=== PATIENT | female | born 1935 | race Caucasian/White ===

== ENCOUNTER 2018-08-03 05:56 | Emergency (ER) | payer MEDICARE, MEDICAID ==
[~2018-08-03] VITALS: Ht 162.6 cm; Wt 64.0 kg
[2018-08-03] MEDS ORDERED: OLANZAPINE 10 MG/VIAL IM ONE (06:30)
[2018-08-03] MEDS ORDERED: MIDAZOLAM HCL 2 MG/2 ML VIAL IV ONE (06:30)
[2018-08-03 07:29] LABS: BASOPHILS % 0.9 % (0.0-2.0); EOSINOPHILS % 3.2 % (0.0-5.0); HEMATOCRIT. 41.2 % (36.0-48.0); HEMOGLOBIN. 13.7 g/dL (12.0-16.0); LYMPHOCYTES % 23.1 % (20.0-50.0); MEAN CORPUSCULAR HEMOGLOBIN 31.7 pg (28.0-32.0); MEAN CORPUSCULAR VOLUME 95.2 fL (81.0-99.0); MONOCYTES % 8.5 % (2.0-8.0); NEUTROPHILS % 64.3 % (40.0-76.0); PLATELET 178 x1000/uL (130-400); RED BLOOD CELL COUNT 4.33 mill/uL (4.2-5.4); RED CELL DISTRIBUTION WIDTH 12.9 % (11.6-14.6)
[2018-08-03 07:30] LABS: CHLORIDE 105 mEq/L (98-107)
[2018-08-03 07:36] LABS: ETHANOL BLOOD < 10 mg/dL
[2018-08-03 09:49] LABS: CLARITY URINE CLOUDY (CLEAR); COLOR URINE YELLOW (YELLOW); KETONES URINE NEGATIVE (NEGATIVE); LEUKOCYTE ESTERASE URINE 3+ (NEGATIVE); NITRITE URINE POSITIVE (NEGATIVE); OCCULT BLOOD URINE TRACE (NEGATIVE); PH URINE 6.5 (4.5-8.0); PROTEIN URINE NEGATIVE (NEGATIVE); SPECIFIC GRAVITY URINE 1.007 (1.005-1.030); UROBILINOGEN URINE 0.2 E.U./dL (0.2-1.0)
[2018-08-03 10:02] LABS: *AMPHETAMINES SCREEN URINE NEGATIVE (NEGATIVE); *BARBITURATES SCREEN URINE NEGATIVE (NEGATIVE)
[2018-08-03 10:03] LABS: *BENZODIAZEPINES SCREEN URINE PRESUMTIVE POSITIVE (NEGATIVE); *COCAINE SCREEN URINE NEGATIVE (NEGATIVE); METHADONE URINE SCREEN NEGATIVE (NEGATIVE); OPIATES URINE SCREEN NEGATIVE (NEGATIVE)
[2018-08-03 10:04] LABS: PHENCYCLIDINE URINE SCREEN NEGATIVE (NEGATIVE)
[2018-08-03 10:05] LABS: CANNABINOID URINE SCREEN NEGATIVE (NEGATIVE)
[2018-08-03 11:13] VITALS: BP 136/67
== END 2018-08-03 11:44 ==
LOC: ER 05:56
DX: M79.18 Myalgia, other site (principal); F03.90 Unspecified dementia, unspecified severity, without behavioral disturbance, psychotic disturbance, mood disturbance, and anxiety; E11.9 Type 2 diabetes mellitus without complications; I10 Essential (primary) hypertension; E78.00 Pure hypercholesterolemia, unspecified; W06.XXXA Fall from bed, initial encounter; Y93.89 Activity, other specified; Y92.128 Other place in nursing home as the place of occurrence of the external cause; Z90.49 Acquired absence of other specified parts of digestive tract
CPT/HCPCS: 36415; 70450; 71250; 72125; 74176; 80053; 80305; 80307; 80329; 81003; 85025; 87077; 87086; 87186; 96372; 96374; 99284; G0482; J2250; J3490

== ENCOUNTER 2018-10-29 19:27 | Inpatient (IN) | payer MEDICARE, MEDICAID ==
[~2018-10-29] VITALS: Ht 154.9 cm; Wt 71.2 kg
[2018-10-29] MEDS ORDERED: ONDANSETRON HCL 4MG/2ML INJ IV STA (19:55)
[2018-10-29] MEDS ORDERED: SODIUM CHLORIDE 0.9% 1,000 ML IV ONE (19:55)
[2018-10-29] MEDS ORDERED: HALOPERIDOL LACTATE 5MG/ML VIAL IM ONE (20:45)
[2018-10-29 20:47] LABS: BASOPHILS % 0.5 % (0.0-2.0); EOSINOPHILS % 1.9 % (0.0-5.0); HEMATOCRIT. 37.2 % (36.0-48.0); HEMOGLOBIN. 12.8 g/dL (12.0-16.0); LYMPHOCYTES % 18.5 % (20.0-50.0); MEAN CORPUSCULAR HEMOGLOBIN 32.1 pg (28.0-32.0); MEAN CORPUSCULAR VOLUME 93.2 fL (81.0-99.0); MEAN PLATELET VOLUME 7.4 fl (7.4-10.4); MONOCYTES % 10.1 % (2.0-8.0); PLATELET 146 x1000/uL (130-400); RED BLOOD CELL COUNT 3.99 mill/uL (4.2-5.4); RED CELL DISTRIBUTION WIDTH 12.6 % (11.6-14.6)
[2018-10-29 20:52] LABS: PROTHROMBIN TIME 10.7 sec (9.6-11.0)
[2018-10-29 20:53] LABS: CHLORIDE 105 mEq/L (98-107)
[2018-10-29 23:35] LABS: CLARITY URINE CLOUDY (CLEAR); COLOR URINE YELLOW (YELLOW); KETONES URINE TRACE (NEGATIVE); LEUKOCYTE ESTERASE URINE 3+ (NEGATIVE); NITRITE URINE NEGATIVE (NEGATIVE); OCCULT BLOOD URINE 1+ (NEGATIVE); PH URINE 5.5 (4.5-8.0); PROTEIN URINE NEGATIVE (NEGATIVE); SPECIFIC GRAVITY URINE 1.016 (1.005-1.030)
[2018-10-30] VITALS: BP 178/77
[2018-10-30 00:30] VITALS: BP 155/58
[2018-10-30] MEDS ORDERED: DOCU100T PO (01:32)
[2018-10-30] MEDS ORDERED: METF-414 PO (01:32)
[2018-10-30] MEDS ORDERED: DONE10TA11 PO (01:32)
[2018-10-30] MEDS ORDERED: LOSA50TA20 PO (01:32)
[2018-10-30] MEDS ORDERED: SIMV10TA6 PO (01:32)
[2018-10-30] MEDS ORDERED: GLIM2TAB2 PO (01:32)
[2018-10-30 04:00] VITALS: BP 133/44
[2018-10-30] MEDS ORDERED: DEXTROSE 50% WATER 50ML SYRINGE IV PRN (05:00)
[2018-10-30] MEDS: BLOOD SUGAR DIAGNOSTIC STRIP TEST SCH ×4 (07:26→21:07)
[2018-10-30] MEDS: INSULIN LISPRO 100 UNITS/ML SUBCUT SCH ×4 (07:26→21:22)
[2018-10-30 08:00] VITALS: BP 132/43
[2018-10-30] MEDS: ENOXAPARIN 40MG/0.4ML SYR SUBCUT SCH (08:53)
[2018-10-30 12:00] VITALS: BP 119/49
[2018-10-30 13:53] LABS: CREATINE KINASE MB FRACTION 2.7 ng/mL (0.5-3.6)
[2018-10-30] MEDS: CEFTRIAXONE 1 G PREMIX 50 ML IV SCH (14:53)
[2018-10-30] MEDS: SODIUM CHLORIDE 0.9% 1,000 ML IV SCH (14:54)
[2018-10-30 20:00] VITALS: BP 156/58
[2018-10-30] MEDS: HALOPERIDOL LACTATE 5MG/ML VIAL IM PRN (21:22)
[2018-10-31] VITALS: BP 136/60
[2018-10-31] MEDS: HALOPERIDOL LACTATE 5MG/ML VIAL IM PRN ×2 (02:08→23:06)
[2018-10-31 04:00] VITALS: BP 138/52
[2018-10-31] MEDS: SODIUM CHLORIDE 0.9% 1,000 ML IV SCH (06:24)
[2018-10-31] MEDS: BLOOD SUGAR DIAGNOSTIC STRIP TEST SCH ×4 (06:24→21:00)
[2018-10-31 06:45] LABS: BASOPHILS % 0.5 % (0.0-2.0); EOSINOPHILS % 4.4 % (0.0-5.0); HEMATOCRIT. 33.2 % (36.0-48.0); HEMOGLOBIN. 11.5 g/dL (12.0-16.0); LYMPHOCYTES % 26.8 % (20.0-50.0); MEAN CORPUSCULAR HEMOGLOBIN 32.3 pg (28.0-32.0); MEAN CORPUSCULAR VOLUME 93.2 fL (81.0-99.0); MONOCYTES % 7.4 % (2.0-8.0); NEUTROPHILS % 60.9 % (40.0-76.0); PLATELET 142 x1000/uL (130-400); RED BLOOD CELL COUNT 3.57 mill/uL (4.2-5.4); RED CELL DISTRIBUTION WIDTH 12.7 % (11.6-14.6)
[2018-10-31 07:23] LABS: CHLORIDE 110 mEq/L (98-107)
[2018-10-31] MEDS: INSULIN LISPRO 100 UNITS/ML SUBCUT SCH ×3 (07:39→23:07)
[2018-10-31 08:00] VITALS: BP 134/47
[2018-10-31] MEDS: ENOXAPARIN 40MG/0.4ML SYR SUBCUT SCH (08:34)
[2018-10-31 12:00] VITALS: BP 127/45
[2018-10-31 16:00] VITALS: BP 138/50
[2018-10-31 20:00] VITALS: BP 131/60
[2018-10-31] MEDS ORDERED: IPRATROPIUM/ALBUTEROL 0.5-3(2.5)MG/3ML NEB HHN PRN (22:45)
[2018-10-31] MEDS ORDERED: GUAIFENESIN 200MG/10ML SUGAR FREE UDC PO PRN (22:45)
[2018-11-01] VITALS: BP 178/77
[2018-11-01] MEDS: SODIUM CHLORIDE 0.9% 1,000 ML IV SCH (00:48)
[2018-11-01] MEDS: CEFTRIAXONE 1 G PREMIX 50 ML IV SCH ×2 (03:05→17:14)
[2018-11-01] MEDS: HALOPERIDOL LACTATE 5MG/ML VIAL IM PRN (03:05)
[2018-11-01] MEDS: INSULIN LISPRO 100 UNITS/ML SUBCUT SCH ×4 (03:07→18:18)
[2018-11-01 04:00] VITALS: BP 168/67
[2018-11-01 06:05] LABS: BASOPHILS % 0.5 % (0.0-2.0); EOSINOPHILS % 4.2 % (0.0-5.0); HEMOGLOBIN. 11.7 g/dL (12.0-16.0); LYMPHOCYTES % 28.3 % (20.0-50.0); MEAN CORPUSCULAR HEMOGLOBIN 31.8 pg (28.0-32.0); MEAN CORPUSCULAR VOLUME 92.7 fL (81.0-99.0); MEAN PLATELET VOLUME 7.6 fl (7.4-10.4); MONOCYTES % 7.1 % (2.0-8.0); NEUTROPHILS % 59.9 % (40.0-76.0); PLATELET 163 x1000/uL (130-400); RED BLOOD CELL COUNT 3.67 mill/uL (4.2-5.4); RED CELL DISTRIBUTION WIDTH 12.5 % (11.6-14.6)
[2018-11-01 06:21] LABS: CHLORIDE 106 mEq/L (98-107)
[2018-11-01] MEDS: BLOOD SUGAR DIAGNOSTIC STRIP TEST SCH ×3 (07:40→17:52)
[2018-11-01 08:00] VITALS: BP 127/64
[2018-11-01] MEDS: ENOXAPARIN 40MG/0.4ML SYR SUBCUT SCH (08:00)
[2018-11-01 12:00] VITALS: BP 142/55
[2018-11-01 16:00] VITALS: BP 131/58
[2018-11-01 16:47] VITALS: BP 122/59
== END 2018-11-01 19:41 | DRG 48 ==
LOC: ER 20:30 → EDBEDREQ 22:03 → EDBEDREQSVC 22:03 → EDBEDREQTM 22:03 → 7WST 22:18 → EDBEDREQSVC 22:19 → EDBEDREQTM 22:19 → ENRESERV 22:20
PROVIDERS: ADMIT Internal Medicine; ATTEND Internal Medicine
DX: G90.8 Other disorders of autonomic nervous system (principal); G93.40 Encephalopathy, unspecified; E44.0 Moderate protein-calorie malnutrition; I11.0 Hypertensive heart disease with heart failure; I50.40 Unspecified combined systolic (congestive) and diastolic (congestive) heart failure; N39.0 Urinary tract infection, site not specified; E11.9 Type 2 diabetes mellitus without complications; R26.9 Unspecified abnormalities of gait and mobility; F03.90 Unspecified dementia, unspecified severity, without behavioral disturbance, psychotic disturbance, mood disturbance, and anxiety; Z66 Do not resuscitate; Z90.49 Acquired absence of other specified parts of digestive tract; Z68.29 Body mass index [BMI] 29.0-29.9, adult; Z79.899 Other long term (current) drug therapy; Z79.84 Long term (current) use of oral hypoglycemic drugs
CPT/HCPCS: 36415; 71045; 80048; 82550; 82553; 82962; 83036; 83605; 83880; 84443; 84484; 87077; 87186; 93005; 93306; 99285; C1893; J0696; J1630; J1650; J1815; J2405; J7030; J7620